=== PATIENT | female | born 1980 | race Hispanic/Latino ===

== ENCOUNTER → 2022-10-01 | Outpatient (CLI) | payer BC, SELFPAY ==
[2022-10-01 08:15] LABS: Hematocrit 41.7 % (37-47); Hemoglobin 13.5 g/dL (12.0-15.0)
[2022-10-01 08:53] LABS: Progesterone Level 0.99 ng/mL (See Comment)
[2022-10-01 08:56] LABS: Hemoglobin A1c 4.9 % (3.8-5.6)
[2022-10-01 09:19] LABS: ALB/GLOB Ratio 1.1 RATIO (0.9-2.4); AST(SGOT) 28 U/L (15-37); Alanine Aminotransfer ALT/SGPT 27 U/L (13-56); Alkaline Phosphatase 51 U/L (45-117); Anion Gap 5 (5-15); BUN 21 mg/dL (7-18); BUN/Creat Ratio 24.5 RATIO (10-20); Calcium,Total 9.1 mg/dL (8.5-10.1); Chloride 107 mmol/L (98-107); Cholesterol 206 mg/dL (200); Creatinine, Serum 0.86 mg/dL (0.55-1.02); EST Glomerular Filtration Rate 77 mL/min (>60); Est Glom Filt Rate - Afr Amer 93 mL/min (>60); Estradiol 61.4 pg/mL; Follicle Stimulating Hormone 8.9 mIU/mL; Globulin 3.6 g/dL (2.2-4.2); Glucose 86 mg/dL (74-106); High Density Lipoprotein 70 mg/dL; Luteinizing Hormone 5.2 mIU/mL; Potassium 4.1 mmol/L (3.5-5.1); Protein, Total 7.6 g/dL (6.4-8.2); Sodium Level 139 mmol/L (136-145); Triglycerides 47 mg/dL; Very Low Density Lipoprotein 9 mg/dL (5-40)
[2022-10-03 22:07] LABS: DHEA Sulfate 57.6 ug/dL (57.3-279.2); Testosterone, % Free 1.27 % (0.50-2.80); Testosterone, Free 0.05 ng/dL (0.10-0.85); Testosterone, Total 4 ng/dL (4-50)
[2022-10-04 12:32] LABS: Sex Hormone-binding Globulin 80.5 nmol/L (24.6-122.0)
== END | disposition home or self-care (01) ==
PROVIDERS: Referring Provider Registered Nurse; Visit Provider Registered Nurse
DX: Z00.00 Encounter for general adult medical examination without abnormal findings (principal); R53.83 Other fatigue; R68.82 Decreased libido; R63.5 Abnormal weight gain; E28.310 Symptomatic premature menopause; M25.50 Pain in unspecified joint
CPT/HCPCS: 36415; 80053; 80061; 82627; 82670; 83001; 83002; 83036; 84144; 84146; 84270; 84402; 84403; 84443; 85014; 85018; 82626

== ENCOUNTER 2023-02-02 08:26 | Outpatient (CLI) | payer BC, SELFPAY ==
[2023-02-02 09:10] LABS: Hematocrit 44.2 % (37-47); Hemoglobin 14.8 g/dL (12.0-15.0); Mean Corp Hgb Conc 33.5 g/dL (32-36); Mean Corpuscular Volume 89.5 fL (81-99); Platelet Count 270 K/mm3 (150-450); RBC Distribution Width CV 12.6 % (11.6-14.6); RBC Distribution Width SD 41.4 fl (35.1-43.9); Red Blood Count 4.94 M/mm3 (4.2-5.4); White Blood Count 6.9 K/mm3 (4.4-11.0)
[2023-02-02 09:54] LABS: Progesterone Level 0.32 ng/mL (See Comment)
[2023-02-02 11:21] LABS: AST(SGOT) 42 U/L (15-37); Alanine Aminotransfer ALT/SGPT 42 U/L (13-56); Albumin, Serum 3.8 g/dL (3.2-5.0); Alkaline Phosphatase 68 U/L (45-117); Anion Gap 1 (5-15); BUN 22 mg/dL (7-18); BUN/Creat Ratio 23.1 RATIO (10-20); Calcium,Total 9.1 mg/dL (8.5-10.1); Chloride 107 mmol/L (98-107); Cholesterol 186 mg/dL (200); Creatinine, Serum 0.95 mg/dL (0.55-1.02); EST Glomerular Filtration Rate 68 mL/min (>60); Est Glom Filt Rate - Afr Amer 82 mL/min (>60); Estradiol 59.4 pg/mL; Glucose 70 mg/dL (74-106); High Density Lipoprotein 65 mg/dL; Potassium 4.1 mmol/L (3.5-5.1); Protein, Total 7.8 g/dL (6.4-8.2); Sodium Level 139 mmol/L (136-145); Triglycerides 71 mg/dL; Very Low Density Lipoprotein 14 mg/dL (5-40)
[2023-02-06 09:08] LABS: DHEA Sulfate 53.1 ug/dL (57.3-279.2); Sex Hormone-binding Globulin 64.7 nmol/L (24.6-122.0); Testosterone, Free 1.53 ng/dL (0.10-0.85); Testosterone, Total 90 ng/dL (4-50)
== END 2023-02-02 23:59 | disposition home or self-care (01) ==
PROVIDERS: Visit Provider Registered Nurse
DX: R53.83 Other fatigue (principal); R68.82 Decreased libido; R63.5 Abnormal weight gain; E28.310 Symptomatic premature menopause; M25.50 Pain in unspecified joint
CPT/HCPCS: 36415; 80053; 80061; 82627; 82670; 84144; 84270; 84402; 84403; 85027; 82626